=== PATIENT | female | born 1970 | race Hispanic/Latino ===

== ENCOUNTER → 2017-05-04 | Outpatient (CLI) | payer OTHER ==
--- NOTE | 2017-05-05 08:13 | Diagnostic Imaging Report ---
#[id number] - MGDXBIL #BILATERAL DIGITAL DIAGNOSTIC MAMMOGRAM WITH CAD: 05/04/2017 Comparison is made to exams dated: 04/25/2015 mammogram, 04/11/2015 mammogram, 04/25/2015 ultrasound and 02/05/2014 mammogram - [facility]. Current study contains 7 films. The tissue of both breasts is heterogeneously dense. This may lower the sensitivity of mammography. Current study was also evaluated with a Computer Aided Detection (CAD) system. The patient indicates the presence of pain beneath the left breast and in the upper outer left breast since the occurrance of an injury. There are no focal findings on the mammogram. A targeted ultrasound of the areas of concern will be performed. No significant masses, calcifications, or other findings are seen in either breast. IMPRESSION: INCOMPLETE: NEEDS ADDITIONAL IMAGING EVALUATION Ultrasound of the painful areas related to the left breast will be performed following the mammogram. The patient will be contacted by the Mammography Department to schedule this appointment. Dr. Rene Valdes MD rs/:05/04/2017 14:33:12 Elementary Educator: Hallie MACKENZIE(Ama)(M), [facility] letter sent: Additional Imaging Needed Mammogram BI-RADS: 0 Indeterminate
--- NOTE | 2017-05-05 08:13 | Diagnostic Imaging Report ---
#[id number] - USBRELIMLT ULTRASOUND OF THE LEFT BREAST : 05/04/2017 Comparison is made to exams dated: 05/04/2017 mammogram, 04/25/2015 ultrasound and 04/25/2015 mammogram - [facility] [place]. Color flow ultrasound was performed on the left breast. Hagen scale images of the real-time examination were reviewed. Targeted ultrasound of the upper outer, and inferior left breast, was performed, where the patient indicates the presence of pain. No solid or cystic mass, or suspicious finding, is seen. Scanning was performed by the devops architect and by the radiologist. Findings were discussed with the patient by the radiologist through a [place] materials scientist at the time of her examination. IMPRESSION: NEGATIVE There is no sonographic or mammographic evidence of malignancy. Suggest clinical surveillance with follow up ultrasound/mammogram if increased or new findings develop. A 1 year screening mammogram is recommended. Dr. Rene Valdes MD rs/:05/04/2017 14:39:17 Legal Document Assistant: RITIKA RAMIREZ RT, [facility] letter sent: Normal Exam Ultrasound BI-RADS: 1 Negative
--- NOTE | 2017-05-05 13:51 | Diagnostic Imaging Report ---
PROCEDURE: Frontal and lateral views of the chest. COMPARISON: None. INDICATIONS: BREAST PAIN FINDINGS: Lines/tubes: None. Lungs: The lungs are well inflated and clear. There is no evidence of pneumonia or pulmonary edema. Pleura: There is no pleural effusion or pneumothorax. Heart and mediastinum: The heart and the mediastinum are normal. Bones: No acute bony abnormality. IMPRESSION: No acute radiographic abnormality. Dictated by: Kolton Brice M.D. on 05/05/2017 at 14:00 Electronically approved by: Kolton Brice M.D. on 05/05/2017 at 14:00
== END ==
LOC: MAMMO 10:56
PROVIDERS: ATTEND Internal Medicine
DX: N64.4 Mastodynia (principal); R07.9 Chest pain, unspecified; R10.9 Unspecified abdominal pain
CPT/HCPCS: 76642; G0204

== ENCOUNTER 2021-02-24 14:00 | Outpatient (RCR) | payer OTHER | END 2021-03-08 | LOC: OT 14:00 | PROVIDERS: ATTEND Specialist | DX: S52.532A Colles' fracture of left radius, initial encounter for closed fracture (principal) ==